=== PATIENT | male | born 1985 ===

== ENCOUNTER 2017-10-02 04:19 | Emergency (ER) | payer SELFPAY | END 2017-10-02 05:15 | disposition left against medical advice (07) | LOC: E/R 04:19 | DX: Z53.21 Procedure and treatment not carried out due to patient leaving prior to being seen by health care provider (principal) ==

== ENCOUNTER 2019-03-18 19:46 | Emergency (ER) | payer SELFPAY ==
[~2019-03-18] VITALS: Ht 170.2 cm; Wt 73.9 kg
[2019-03-18 19:49] VITALS: BP 138/86; PULSE 124; RESP 18; Ht 170.2 cm; Wt 73.9 kg
== END 2019-03-18 20:44 | disposition left against medical advice (07) ==
LOC: E/R 19:46
DX: Z53.21 Procedure and treatment not carried out due to patient leaving prior to being seen by health care provider (principal)
CPT/HCPCS: 93005